=== PATIENT | female | born 1965 | race Caucasian/White ===

== ENCOUNTER 2017-01-20 14:22 | Emergency (ER) | payer SELFPAY ==
--- NOTE | ~2017-01-20 | ER ---
PATIENT'S NAME: [facility] AGE: 51 Y [address] ROOM: [place], [place] [id number] LOCATION: ED ADMIT DATE: 01/20/2017 ER/Outpatient Report DISCHARGE DATE: 01/20/2017 FAMILY PHYSICIAN: PHYSICIAN, NO ATTENDING PHYSICIAN: Nash Barba Time of Arrival: 1422 hours. Time of Evaluation: 1425 hours. CHIEF COMPLAINT: Right flank pain. HISTORY OF PRESENT ILLNESS: This is a 51-year-old female, who presents to the ER with right flank pain. The patient states her pain has been there for the past few days, but it has gotten worse today. She states that it is dull, achy, and then becomes sharp and stabbing at times. She states it is in her right flank and radiates around to the front of her abdomen as well. She has not noticed any fevers. It does make her feel nauseated, but she has had no vomiting. She also states she has troubles with constipation as well. She has noticed that her urine has become discolored a few days ago, but has not noticed anything today. She denies any other problems at this time. ALLERGIES: PENICILLIN AND CODEINE. MEDICATIONS: Please see medication list nurse's notes. PAST MEDICAL HISTORY: Hypertension, arthritis, and fibromyalgia. PAST SURGERIES: She has had an ablation to her uterus, umbilical hernia repair with complications of abscess, and cholecystectomy. SOCIAL HISTORY: She smokes 1 pack a day for the last 30 years. REVIEW OF SYSTEMS: A 10-point review of systems was completed and was negative with the exception of those discussed in the HPI. PHYSICAL EXAMINATION: VITAL SIGNS: Height 5 feet and 7 inches stated, weight 132.6 kg taken, blood PATIENT'S NAME: [facility] AGE: 51 Y [address] ROOM: [place], [place] [id number] LOCATION: ED ADMIT DATE: 01/20/2017 ER/Outpatient Report DISCHARGE DATE: 01/20/2017 FAMILY PHYSICIAN: PHYSICIAN, NO ATTENDING PHYSICIAN: Nash Barba pressure is 141/83, pulse 84, respirations 18, temperature 99 degrees tympanically, and saturations 96% on room air. [place] Coma Score is 15. GENERAL: Alert, calm, morbidly obese female, in [id number] distress. HEENT: Head: Normocephalic. Eyes: Pupils are equal and reactive to light. Does display moist mucous membranes. LUNGS: Clear to auscultation bilaterally. No wheezes or crackles. Normal respiratory effort. HEART: Regular rate and rhythm. No lifts, thrills, or murmurs. ABDOMEN: Obese. She does have some right-sided CVA tenderness to palpation and mild tenderness on the right side of her abdomen. She has no guarding and no rebound tenderness. LABORATORY DATA AND X-RAYS: CBC: White blood cells 13.7, hemoglobin is 15.3, platelets 286, ANC is 10.7. CMS: Potassium 3.4, otherwise unremarkable. Amylase 26 and lipase 78. Urinalysis; leukocytes 25 and nitrites negative. UA micro: White blood cells 5 to 10, red blood cells 20 to 50, and epithelial [address] scan was done with IV contrast and does show a 6 mm right-sided kidney stone at the UVJ. IMPRESSION: Right-sided kidney stone, measuring 6 mm. ASSESSMENT AND PLAN: We did start an IV here in the emergency room and we did give her initially 2 mg of morphine IV. After we got her kidney studies back, we did give her 30 mg of Toradol and another 2 mg of morphine, which really improved her pain. We will dismiss the patient to home with prescription for Elliott, Flomax, and Zofran to use as directed. She needs to continue to push fluids. We will have her strain her urine and monitor her symptoms. The patient should follow up with her primary care physician or Urology for followup care if she is unable to pass it, otherwise if her pain becomes uncontrolled with oral pain medications. She needs to return or contact her primary care physician for pain management. The patient understands and agrees with care. RACHELL COOPER PA-C FOR MD RIP LIPSCOMB/hillary /[id number] d: 01/20/17 2144 t: 02/06/17 0802, OUTPATIENT REPORT
[~2017-01-20 14:22] MED LIST: BAYER BACK & B1 EACH PO; PERCOCET 5-3251 EACH PO; PRINIVIL OR ZES10 MG PO
[2017-01-20 15:09] LABS: BASOPHIL # 0.1 K/uL (0.0-0.2); BASOPHIL % 0.4 %; EOSINOPHIL # 0.1 K/uL (0.0-0.5); EOSINOPHIL % 0.9 %; HEMATOCRIT 46.3 % (33.0-46.0); HEMOGLOBIN 15.3 g/dL (10.0-15.0); IMMATURE GRANULOCYTE # 0.1 K/uL (0.0-0.3); IMMATURE GRANULOCYTE % 0.4 %; LYMPHOCYTE # 1.9 K/uL (0.8-4.0); LYMPHOCYTE % 13.6 %; MCV 87.9 fl (83.0-98.0); MONOCYTE # 0.9 K/uL (0.0-1.0); MONOCYTE % 6.7 %; MPV 9.6 fl (9.4-12.4); NEUTROPHIL # (ANC) 10.7 K/uL (1.8-7.8); NRBC % 0 /100WBC (0-0.00); PLATELET COUNT 286 K/uL (150-450); RBC 5.27 M/uL (3.50-5.50); RDW-CV 14.1 % (11.9-14.6); WBC 13.7 K/uL (4.0-11.0)
[2017-01-20 15:24] LABS: ALBUMIN 3.1 gm/dL (3.5-5.0); ALK PHOS 108 IU/L (33-138); ALT 26 IU/L (12-78); ANION GAP 13.4 (10.0-19.0); AST 17 IU/L (10-40); BLOOD UREA NITROGEN 14 mg/dL (6-24); CALCIUM 8.7 mg/dL (8.5-10.5); CHLORIDE 102 mMol/L (96-110); CO2 29 mMol/L (22-32); CREATININE 0.7 mg/dL (0.5-1.1); ESTIMATED GFR (MDRD EQUATION) > 60; POTASSIUM 3.4 mMol/L (3.7-5.1); SODIUM 141 mMol/L (135-145); TOTAL BILIRUBIN 0.5 mg/dL (0.0-1.5); TOTAL PROTEIN 6.9 g/dL (6.0-8.4)
[2017-01-20 17:12] LABS: BILIRUBIN URINE NEGATIVE (NEGATIVE); BLOOD URINE 250 /UL (NEGATIVE); COLOR URINE YELLOW (YELLOW); GLUCOSE URINE NEGATIVE (NEGATIVE); KETONE URINE 50 mg/dL (NEGATIVE); LEUKOCYTES URINE 25 /UL (NEGATIVE); NITRITE URINE NEGATIVE (NEGATIVE); PROTEIN URINE 30 mg/dL (NEGATIVE); TURBIDITY URINE CLEAR (CLEAR); UROBILINOGEN URINE 1 mg/dL (NORMAL)
[2017-01-20 17:28] LABS: RBC URINE 20-50 #/HPF (NEGATIVE)
[2017-01-20 17:29] LABS: AMORPHOUS URINE 2+ (NEGATIVE); BACTERIA URINE MODERATE (NEGATIVE); HYALINE CAST URINE 0-2 #/LPF (NEGATIVE); MUCUS URINE 1+ (NEGATIVE)
== END 2017-01-20 17:49 | disposition disaster alternative care site (69) ==
LOC: GMED 14:22
PROVIDERS: Physician Assistant Medical
DX: N20.0 Calculus of kidney (principal); I10 Essential (primary) hypertension; F17.210 Nicotine dependence, cigarettes, uncomplicated; Z88.0 Allergy status to penicillin; Z88.8 Allergy status to other drugs, medicaments and biological substances; Z90.49 Acquired absence of other specified parts of digestive tract
CPT/HCPCS: J1885; J2270; J2405; J7030

== ENCOUNTER → 2017-01-25 | Outpatient (CLI) | payer SELFPAY | END | disposition disaster alternative care site (69) | LOC: GRAD 16:34 | DX: N20.0 Calculus of kidney (principal) ==